=== PATIENT | female | born 1975 | race Caucasian/White ===

== ENCOUNTER 2017-03-01 | Inpatient (IN) | payer MEDICARE, OTHER ==
[~2017-03-01] VITALS: Ht 157.5 cm; Wt 121.1 kg
--- NOTE | ~2017-03-01 | CO ---
Unit #: [id number] #: [id number] Patient: SABA CISSE [id number] [place] [address] [id number] I MR#: [id number] NAME: SABA CISSE ROOM: P254 Age: 42 Sex: F Admission Date: 03/01/2017 : 1975 Attending Physician: Corazon Mehta M.D. Primary Care Physician: Primary Care Physician No Consultation Date: 03/02/2017 CONSULTATION REPORT SUBJECTIVE Saba is a 42-year-old who was noted to have abnormally low platelet count on admission labs. She does have a history of ITP and has no active bleeding at this time. She was followed by her PCP. No plans to add to her current treatment regimen. Dictated by... Ely Melendrez P.A.-C. for Sabino Piper/kacie TD: 03/02/2017 21:09 JOB #: [id number] CONSULTATION REPORT Page 1 of 1 X Ely Melendrez CONSULTATION REPORT
--- NOTE | ~2017-03-01 | DS ---
Unit #: [id number] #: [id number] Patient: ANDRA CISSE [id number] [facility] [place] [address] [id number] I MR#: [id number] NAME: ANDRA CISSE ROOM: P254 Age: 42 Sex: F Admission Date: 03/01/2017 : 1975 Discharge Date: 03/04/2017 Attending Physician: Corazon Mehta M.D. Primary Care Physician: Primary Care Physician No DISCHARGE SUMMARY IDENTIFYING DATA Ms. Cisse is a 42-year-old , disabled white female who is a resident of [place], [place] and is known to us from previous encounter and was self-referred to the hospital on a voluntary basis. HISTORY OF PRESENT ILLNESS Please see initial evaluation. PAST PSYCHIATRIC HISTORY Please see initial evaluation. PAST MEDICAL HISTORY Please see initial evaluation. HOSPITAL COURSE The patient was admitted to the adult psychiatric unit at [facility] shiloh Sidhu and was oriented to the hospital environment. Routine p.r.n. medications were initiated and she was started back on her home medications and medications were adjusted and she was closely monitored and Risperdal and Celexa were initiated. She was taking medications regularly and was tolerating them fairly well and was able to show a decent therapeutic response with improvement in depression and anxiety and as such it was decided that she will be discharged and will continue treatment on outpatient basis. DISCHARGE DIAGNOSES PSYCHIATRIC: Major depressive disorder, recurrent, moderate, with psychosis. MEDICAL: 1. Obesity. 2. Hypertension. 3. Gastroesophageal reflux disease. STRESSORS: Mild psychosocial stressors. DISCHARGE MEDICATIONS 1. Risperdal 1 mg at bedtime for psychosis. 2. Celexa 20 mg in the morning for depression. CONDITION AT DISCHARGE Stable. Unit #: [id number] #: [id number] Patient: ANDRA CISSE PROGNOSIS Fair. Dictated by... Sabino Peralta/mala TD: 03/04/2017 20:37 JOB #: [id number] DISCHARGE SUMMARY Page 1 of 1 X Corazon Mehta MD X DISCHARGE SUMMARY
--- NOTE | ~2017-03-01 | CO ---
Unit #: [id number] #: [id number] Patient: SABA CISSE [id number] [place] [address] [id number] I MR#: [id number] NAME: SABA CISSE ROOM: P254 Age: 42 Sex: F Admission Date: 03/01/2017 : 1975 Attending Physician: Corazon Mehta M.D. Primary Care Physician: Primary Care Physician No Consultation Date: 03/01/2017 CONSULTATION REPORT Note, Saba is a 50-year-old who reported red moist rash under her breast and between her legs. She is very obese. We will provide her with a Gold Montero powder. Keep the area dry on a b.i.d. basis. Dictated by... Ely Melendrez P.A.-C. for Sabino Piper/kacie TD: 03/01/2017 20:04 JOB #: [id number] CONSULTATION REPORT Page 1 of 1 X Ely Melendrez CONSULTATION REPORT
--- NOTE | ~2017-03-01 | HP ---
Unit #: [id number] #: [id number] Patient: SABA CISSE [id number] [place] [address] [id number] I MR#: [id number] NAME: SABA CISSE ROOM: P254 Age: 42 Sex: F Admission Date: 03/01/2017 : 1975 Attending Physician: Corazon Mehta M.D. Admitting Physician: Corazon Mehta M.D. Primary Care Physician: Primary Care Physician No HISTORY AND PHYSICAL HISTORY OF PRESENT ILLNESS Saba is a 42 year old admitted to [address] [place] [address] with depression and verbalizing wanting to hurt herself. PAST MEDICAL HISTORY 1. Morbid obesity. 2. High blood pressure. 3. ITP. 4. Psoriasis. PAST SURGICAL HISTORY 1. x3. 2. D and C. 3. Hysterectomy. ALLERGIES No known drug allergies. SOCIAL HISTORY She denies cigarettes, alcohol and illicit drug use. FAMILY HISTORY Medically noncontributory. REVIEW OF SYSTEMS CONSTITUTIONAL: No fever or chills. HEENT: Denies any sore throat, ear pain or runny nose. CARDIOVASCULAR: Denies chest pain, irregular heart rhythm or palpitations. CHEST: Denies shortness of breath or cough. No hemoptysis. GASTROINTESTINAL: Denies nausea, vomiting, diarrhea or chronic constipation. ENDOCRINE: Denies history of increased thirst or urination. No recent significant weight loss or gain. GENITOURINARY: Denies dysuria, frequency, or hematuria. SKIN: She does report dry, scaling rash on her knee for many years. HEMATOLOGIC: Denies history of increased bleeding or bruising. MUSCULOSKELETAL: Denies any hot, swollen joints. No generalized muscle pain. NEUROLOGIC: Denies problems with vision or speech. No frequent, severe headaches. No numbness, tingling or weakness in any extremities. Denies loss of bladder or bowel control. CURRENT MEDICATIONS Unit #: [id number] #: [id number] Patient: SABA CISSE 1. Protonix 40 mg daily. 2. Norvasc 5 mg daily. 3. Ultravate 0.05% b.i.d. 4. Milk of Magnesia p.r.n. 5. Maalox p.r.n. 6. Tylenol p.r.n. PHYSICAL EXAMINATION GENERAL: Alert, morbidly obese, in no apparent distress. VITAL SIGNS: Blood pressure 142/70, heart rate 80, respirations 16, temperature 98.6. WEIGHT: 267. HEIGHT: 5 feet 2 inches. SKIN: Warm and dry. She has a thick, dry, red plaque-like rash along her right knee. HEENT: Normocephalic. TMs not viewed. Oral and nasal passages clear. Conjunctivae clear. PERRLA. EOMs intact. NECK: Supple without lymphadenopathy or thyromegaly. HEART: Regular rate and rhythm without murmur. LUNGS: Clear. ABDOMEN: Soft, nontender. : Not done. EXTREMITIES: No evidence of cyanosis, clubbing or edema. Moves all without focal deficit. NEUROLOGICAL: Grossly within normal limits. Cranial Nerves: II: Visual olivo are intact. III, IV AND : Extraocular movements are intact. Pupils are equal, round and reactive to light. V: Facial sensation is grossly normal. VII: Facial movements and expression are normal. VIII: Auditory acuity grossly intact. IX, X: Uvula is midline. Phonation is normal. XI: Patient shrugs shoulders and turns head normally. XII: Tongue protrudes in the midline. Sensory and Motor Function: Sensory and motor sensation is grossly normal. Motor: moves all extremities well. Coordination: Gait is normal. Deep Tendon Reflexes: Intact. IMPRESSION 1. Psychiatric admission. 2. Psoriasis. RECOMMENDATIONS PSYCHIATRIC: Per psychiatrist. MEDICAL: See no contraindication to participate in facility's activities. MEDICAL PROGNOSIS Good. MEDICAL CONDITION Stable. Dictated by... Ely Melendrez P.A.-C. for Sabino Piper/[facility] Unit #: [id number] #: [id number] Patient: SABA CISSE TD: 03/01/2017 19:48 JOB #: [id number] HISTORY AND PHYSICAL Page 1 of 1 X Ely Melendrez HISTORY AND PHYSICAL
--- NOTE | ~2017-03-01 | PA ---
Unit #: [id number] #: [id number] Patient: ANDRA CISSE [id number] [place] [address] [id number] I MR#: [id number] NAME: ANDRA CISSE ROOM: P254 Age: 42 Sex: F Admission Date: 03/01/2017 : 1975 Date of Assessment: 03/02/2017 Attending Physician: Corazon Mehta M.D. Admitting Physician: Corazon Mehta M.D. Primary Care Physician: Primary Care Physician No PSYCHIATRIC ASSESSMENT DATE OF SERVICE 03/01/2017. IDENTIFYING DATA Ms. Cisse is a 42-year-old disabled white female, who is a resident of [place], [place], and is known to us from previous encounter, was self-referred to the hospital on a voluntary basis. CHIEF COMPLAINT "I'm not going right." HISTORY OF PRESENT ILLNESS Ms. Cisse is a 42-year-old white female with history of mood disorder, who was self-referred to the hospital stating that she has been for 20 years and is not treating her right and they have been through a lot, but she and her have been arguing a lot lately and that she has been worrying over everything and arguing with her family and she just wants to get better and reports that she has been under a lot of stress regarding finances and her nerves has been bad and that she has not slept in 3 days because of her 2 kids on drugs and she is tired and reports that she has been thinking of hurting herself. A couple of days ago, she was having thoughts of getting into her car and driving her car into the hand and reports that she has been thinking of hurting herself, but she said that she is afraid of the pain and that today she made the comment that she wanted to hurt herself and her son flushed her Norvasc medication on the daughter. The patient reports that she has been scared because of the people are putting stuff in her coffee and food and when she is at home, she thinks that there are people sitting outside with gun. She does report increasing depression, anxiety, restlessness, disturbed sleep and appetite, poor energy level, psychomotor retardation, feelings of hopelessness and helplessness, and suicidal ideations and as such, recommendation for inpatient level of care for safety and stabilization was made, and the patient was stepped up to the inpatient unit. SUBSTANCE ABUSE HISTORY The patient reports history of alcohol, cannabis, cocaine, amphetamines, and benzodiazepine abuse in the past, but she reports that she has not done any drug in the last several years. PAST PSYCHIATRIC HISTORY The patient has had history of outpatient psychiatric treatment in the past, and review of the medical records indicate currently she is not active in any treatment program, is not seeing a psychiatrist, and is not Unit #: [id number] #: [id number] Patient: ANDRA CISSE taking any psychotropic medications. PAST MEDICAL HISTORY Significant for hypertension, obesity, gastroesophageal reflux disease. ALLERGIES Aspirin. CURRENT MEDICATIONS Norvasc and Nexium. PERSONAL AND SOCIAL HISTORY A 42-year-old white female, who reports that she is and lives at home with her and her 4 kids and reports fairly decent social support system. MENTAL STATUS EXAMINATION Middle-aged white female who was casually dressed with fair personal hygiene, appears to be in no acute distress or discomfort. She was awake and alert on interaction with intact orientation. Her mood was anxious and depressed with a congruent affect. Her speech was slow and restricted in content. Her thought processes were disorganized with some looseness of associations and flight of ideas and suicidal ideations and paranoid ideations. Her insight and judgment remain significantly impaired. DIAGNOSTIC IMPRESSION Psychiatric: Major depressive disorder, recurrent, moderate, with psychosis. Medical: Obesity, hypertension, gastroesophageal reflux disease. Stressors: Moderate psychosocial stressors. TREATMENT PLAN 1. The patient has presented with history of mood disorder and psychosis and has been decompensating and will need inpatient hospitalization for safety and stabilization. We will start her back on her home medications and we will adjust the medications and monitor response. 2. Supportive therapy was provided to the patient. ESTIMATED LENGTH OF STAY 4 to 5 days. ABILITY TO HELP SELF Limited. WILLINGNESS TO HELP SELF The patient appears to be willing to help self. STRENGTHS 1. Communicative. 2. Cooperative. PROBLEMS 1. Chronic dysphoric symptoms. 2. Poor social support system. DISCHARGE CRITERIA This will be contingent upon the patient's ability to show resolution of her depression and anxiety, and psychosis and her ability to stay safe to herself, particularly after discharge from the hospital. Unit #: [id number] #: [id number] Patient: ANDRA CISSE Dictated by... Sabino Peralta/kacie TD: 03/02/2017 07:54 JOB #: [id number] PSYCHIATRIC ASSESSMENT Page 1 of 1 X Corazon Mehta MD X PSYCHIATRIC ASSESSMENT
--- NOTE | ~2017-03-01 | PN ---
Unit #: [id number] #: [id number] Patient: ANDRA CISSE [id number] [facility] [address] [place] [address] [id number] I MR#: [id number] NAME: ANDRA CISSE ROOM: P254 Age: 42 Sex: F Admission Date: 03/01/2017 : 1975 Attending Physician: Corazon Mehta M.D. Admitting Physician: Corazon Mehta M.D. Primary Care Physician: Primary Care Physician Trina YOU PROGRESS NOTES DATE OF SERVICE 03/02/2017 DISCUSSION Ms. Cisse is a 42-year-old white female who was seen today. Chart was reviewed and case was discussed with the staff. She has been anxious, withdrawn, and rather seclusive to herself. Meanwhile, she has been cooperative with the treatment recommendations and has been taking the medications and tolerating them fairly well with no reported side effects. MENTAL STATUS EXAMINATION Middle-aged white female who is casually dressed with fair personal hygiene, appears to be in no acute distress or discomfort. She was awake and alert with intact orientation. Her mood is anxious and depressed with congruent affect. Speech is fluent and goal-directed. She reports having suicidal ideation but denies any homicidal ideations. Her insight and judgment remain slightly impaired. TREATMENT PLAN 1. We will continue her on her current medications and treatment protocol. We will monitor her response to the medications and make further adjustments as needed. 2. We will continue to follow up. Dictated by... Sabino Peralta/timothy TD: 03/02/2017 12:47 JOB #: [id number] Unit #: [id number] #: [id number] Patient: ANDRA CISSE PEAULI PROGRESS NOTES Page 1 of 1 X Corazon Mehta MD X PROGRESS NOTE
--- NOTE | ~2017-03-01 | PN ---
Unit #: [id number] #: [id number] Patient: ANDRA CISSE [id number] [facility] [address] [place] [address] [id number] I MR#: [id number] NAME: ANDRA CISSE ROOM: P254 Age: 42 Sex: F Admission Date: 03/01/2017 : 1975 Attending Physician: Corazon Mehta M.D. Admitting Physician: Corazon Mehta M.D. Primary Care Physician: Primary Care Physician Trina YUO PROGRESS NOTES DATE March 03, 2017 DISCUSSION Mr. Cisse is a 42-year-old white female, who was seen today and chart was reviewed and the case was discussed with the staff. The patient has been anxious, withdrawn, and rather seclusive to herself. Meanwhile, she has been cooperative with the treatment recommendations and she has been taking the medications and tolerating them fairly well. MENTAL STATUS EXAMINATION Middle-aged white female, who was casually dressed with fair personal hygiene and appears to be in no acute distress or discomfort. She was awake and alert on interaction with intact orientation. Her mood was anxious and depressed with a congruent affect. She denies any suicidal or homicidal ideations. Her insight and judgment remain slightly impaired. TREATMENT PLAN 1. We will continue her on her current medications and treatment protocol, and will monitor her response to the medications, and make further adjustments as needed. 2. We will continue to followup. Dictated by... Sabino Peralta/dariel TD: 03/03/2017 13:02 JOB #: [id number] Unit #: [id number] #: [id number] Patient: ANDRA CISSE PEAULI PROGRESS NOTES Page 1 of 1 X Corazon Mehta MD X PROGRESS NOTE
[2017-03-02 09:51] LABS: BASOPHIL% 0.6 % (0-2.5); EOSINOPHIL# 0.2 X10e3 (0-0.7); EOSINOPHIL% 3.3 % (0.0-7.0); HEMOGLOBIN 12.7 gm/dL (12.0-16.0); LYMPHOCYTE# 2.2 X10e3 (1.0-3.5); LYMPHOCYTE% 40.1 % (17.0-45.0); MEAN CELL VOLUME 80.5 FL (83-96); MEAN CORPUSCULAR HEMOGLOBIN 26.2 PG (28-34); MEAN CORPUSCULAR HGB CONC 32.5 g/dL (30-36); MEAN PLATELET VOLUME 9.1 FL (6.5-11.5); MONOCYTE# 0.5 X10e3 (0-1.0); MONOCYTE% 8.1 % (3.0-12.0); NEUTROPHIL# 2.7 X10e3 (1.5-7.1); NEUTROPHIL% 47.9 % (40-75); RED BLOOD COUNT 4.84 X10e (3.90-5.30); RED CELL DISTRIBUTION WIDTH 14.8 % (11.0-15.5); WHITE BLOOD COUNT 5.6 X10e3 (4.0-10.5)
[2017-03-02 10:16] LABS: ALBUMIN SERUM 3.5 g/dL (3.5-5.0); BILIRUBIN,TOTAL 0.4 mg/dL (0.2-2.0); BUN/CREATININE RATIO 21.42; CALCIUM SERUM 8.4 mg/dL (8.4-10.2); CREATININE SERUM 0.7 mg/dL (0.6-1.4); GLOM FILT RATE Estimated 108.4 mL/min (>60); POTASSIUM 3.7 mmol/L (3.5-5.1); PROTEIN TOTAL SERUM 6.1 g/dL (6.0-8.3)
[2017-03-02 10:44] LABS: DIFF IND YES; PLATELET COUNT 35 X10e3 (140-420)
[2017-03-02 10:52] LABS: PLATELET ESTIMATE DECREASED (NORMAL); RBC NORMAL YES
[2017-03-02 12:44] LABS: URINE APPEARANCE CLOUDY; URINE BILIRUBIN NEG (NEG); URINE BLOOD NEG (NEG); URINE COLOR YELLOW; URINE GLUCOSE NEG (NEG); URINE KETONE NEG (NEG); URINE LEUKOCYTE ESTERASE TRACE (NEG); URINE NITRATE NEG (NEG); URINE PROTEIN NEG (NEG); URINE SPECIFIC GRAVITY 1.027 (1.003-1.035)
[2017-03-02 12:47] LABS: URINE BACTERIA AUWI 4+ (NEGATIVE); URINE SQUAMOUS EPITHELIAL CELL MANY /[HPF]
[2017-03-02 13:05] LABS: URINE CRYSTALS CALCIUM OXALATE /[HPF]
[2017-03-02 14:06] LABS: AMPHETAMINE NEG (NEG); BARBITURATES NEG (NEG); BENZODIAZEPINES NEG (NEG); COCAINE NEG (NEG); MARIJUANA NEG (NEG); OPIATES NEG (NEG); TRICYCLIC ANTIDEPRESSANTS NEG (NEG); U METHADONE NEG (NEG)
== END 2017-03-04 11:30 | disposition home or self-care (01) | DRG 885 ==
LOC: P2L 06:08
PROVIDERS: Psychiatry & Neurology Psychiatry
DX: F33.3 Major depressive disorder, recurrent, severe with psychotic symptoms (principal); R45.851 Suicidal ideations; Z68.42 Body mass index [BMI] 45.0-49.9, adult; E66.9 Obesity, unspecified; I10 Essential (primary) hypertension; K21.9 Gastro-esophageal reflux disease without esophagitis; Z90.710 Acquired absence of both cervix and uterus; L40.9 Psoriasis, unspecified; R79.89 Other specified abnormal findings of blood chemistry
CPT/HCPCS: 80053; 80307; 81003; 85025